=== PATIENT | male | born 2000 | race Caucasian/White ===

== ENCOUNTER 2022-10-05 15:09 | Emergency (ER) | payer OTHER ==
[~2022-10-05] VITALS: Ht 190 cm; Wt 142.0 kg
--- NOTE | 2022-10-05 15:38 | ED Chest Pain ---
General Chief Complaint: Chest Wall Stated Complaint: CHEST PAIN Nursing Triage Note: PT AMB TO RM 2 PT CO OF PAIN IN L CHEST WALL, DOWN LSIDE 6/10 PAIN. PT STATES DOES HAVE TONSILITIS AND IS CURRENTLY TAKING ANTIBIOTICS AND HAS HAS PREDNISONE. PT STATES HAS BEEN THROWING UP SINCE YESTERDAY. Source: patient Exam Limitations: no limitations (KEITH ARIAS) History of Present Illness Date Seen by Provider: Oct 05, 2022 Time Seen by Provider: 15:35 Initial Comments Patient is a 22-year-old male who presents the ED with left-sided chest pain. S tarted her 6 hours ago while sitting at home. Describes pain as somebody sitting on his chest. Worse with movement radiates from the left sided chest to the left lateral chest. Pain is 6 out of 10. But is exacerbated with movement. Had associated shortness of breath that improved. Denies cough. patient was diagnosed with tonsillitis yesterday at [facility] prescribed prednisone. Started prednisone yesterday not currently antibiotics. Reports negative strep and COVID. States he has been having some intermittent vomiting and diarrhea over the past 2 days. No history of cardiac disease, CHF, asthma, smoking. No recent travels or surgeries or no blood disorders. Denies leg pain or swelling. No history of previous symptoms in the past or history of syncope. Denies fever, chills, headache, dizziness, ear pain, cough. denies of any specific injury or history of similar pain. (KEITH ARIAS) Allergies and Home Medications Allergies Coded Allergies: Penicillins (Verified Allergy, Unknown, 10/05/22) Patient Home Medication List Home Medication List Reviewed: Yes (KEITH ARIAS) Review of Systems Review of Systems Constitutional: No chills, No diaphoresis; malaise, weakness EENTM: No Double Vision, No Eye Pain Respiratory: Denies Cough; Shortness of Air; Denies SOA at Rest Gastrointestinal: Denies Abdominal Pain, Denies Diarrhea, Denies Nausea, Denies Vomiting Genitourinary: Denies Burning, Denies Discharge Musculoskeletal: No back pain, No joint pain, No muscle pain, No muscle stiffness Skin: No change in color, No change in hair/nails (KEITH ARIAS) All Other Systems Reviewed Negative Unless Noted: Yes (KEITH ARIAS) Past Ninzxbm-Vjuyco-Ijyryt Hx Patient Social History Use of E-Cig and/or Vaping dev: Yes E-Cig or Vaping type used: Nicotine Substance use?: No Alcohol Use?: No Pt feels they are or have been: No (KEITH ARIAS) Immunizations Up To Date Influenza Vaccine Up-to-Date: No; Not Current First/Initial COVID19 Vaccinat: YES (KEITH ARIAS) Past Medical History Surgery/Hospitalization HX: DENIES MED HX (KEITH ARIAS) Physical Exam Vital Signs Vital Signs - First Documented 10/05/22 15:15 Temp 36.3 Pulse 116 Resp 21 B/P (MAP) 129/70 (89) (ABRAHAM HERNANDEZ MD) Vital Signs Capillary Refill : Less Than 3 Seconds (KEITH ARIAS) Height, Weight, BMI Height: '" Weight: lbs. oz. kg; 39.00 BMI Method: General Appearance: No Apparent Distress, WD/WN HEENT: PERRL/EOMI, TMs Normal, Normal ENT Inspection, Pharynx Normal Neck: Full Range of Motion, Normal Inspection, Non Tender, Supple Respiratory: Lungs Clear, Normal Breath Sounds, No Accessory Muscle Use, No Respiratory Distress, Other (Left-sided chest wall tenderness and anterior chest wall tenderness) Cardiovascular: Regular Rate, Rhythm, No Edema, No Gallop, No JVD Gastrointestinal: Normal Bowel Sounds, No Organomegaly, No Pulsatile Mass, Non Tender Extremity: Normal Capillary Refill, Normal Inspection, Normal Range of Motion, Non Tender Neurologic/Psychiatric: Alert, Oriented x3, No Motor/Sensory Deficits, Normal Mood/Affect, green chain marker II-XII Norm as Tested Skin: Normal Color, Warm/Dry (KEITH ARIAS) Progress/Results/Core Measures Results/Orders Lab Results Laboratory Tests Test 10/05/22 15:20 Range/Units White Blood Count 14.5 H 4.3-11.0 10^3/uL Red Blood Count 6.02 H 4.30-5.52 10^6/uL Hemoglobin 17.9 H 13.3-17.7 g/dL Hematocrit 51 40-54 % Mean Corpuscular Volume 84 80-99 fL Mean Corpuscular Hemoglobin 30 25-34 pg Mean Corpuscular Hemoglobin Concent 35 32-36 g/dL Red Cell Distribution Width 13.1 10.0-14.5 % Platelet Count 265 130-400 10^3/uL Mean Platelet Volume 9.5 9.0-12.2 fL Immature Granulocyte % (Auto) 0 % Neutrophils (%) (Auto) 82 H 42-75 % Lymphocytes (%) (Auto) 10 L 12-44 % Monocytes (%) (Auto) 7 0-12 % Eosinophils (%) (Auto) 1 0-10 % Basophils (%) (Auto) 0 0-10 % Neutrophils # (Auto) 11.9 H 1.8-7.8 10^3/uL Lymphocytes # (Auto) 1.4 1.0-4.0 10^3/uL Monocytes # (Auto) 1.1 H 0.0-1.0 10^3/uL Eosinophils # (Auto) 0.1 0.0-0.3 10^3/uL Basophils # (Auto) 0.0 0.0-0.1 10^3/uL Immature Granulocyte # (Auto) 0.1 0.0-0.1 10^3/uL Neutrophils % (Manual) 81 % Lymphocytes % (Manual) 5 % Monocytes % (Manual) 7 % Band Neutrophils 7 % Platelet Estimate NORMAL Blood Morphology Comment NORMAL Prothrombin Time 14.0 12.2-14.7 SEC INR Comment 1.0 0.8-1.4 Activated Partial Thromboplast Time 38 H 24-35 SEC D-Dimer 0.55 H 0.00-0.49 UG/ML Sodium Level 143 135-145 MMOL/L Potassium Level 3.9 3.6-5.0 MMOL/L Chloride Level 106 98-107 MMOL/L Carbon Dioxide Level 24 21-32 MMOL/L Anion Gap 13 5-14 MMOL/L Blood Urea Nitrogen 17 7-18 MG/DL Creatinine 0.93 0.60-1.30 MG/DL Estimat Glomerular Filtration Rate 121 BUN/Creatinine Ratio 18 Glucose Level 102 70-105 MG/DL Calcium Level 9.3 8.5-10.1 MG/DL Corrected Calcium 8.9 8.5-10.1 MG/DL Magnesium Level 1.7 1.6-2.4 MG/DL Total Bilirubin 1.0 0.1-1.0 MG/DL Aspartate Amino Transf (AST/SGOT) 16 5-34 U/L Alanine Aminotransferase (ALT/SGPT) 35 0-55 U/L Alkaline Phosphatase 69 40-136 U/L Myoglobin 59.5 10.0-92.0 NG/ML Troponin I < 0.028 <0.028 NG/ML Total Protein 8.0 6.4-8.2 GM/DL Albumin 4.5 3.2-4.5 GM/DL Lipase 10 8-78 U/L Monoscreen NEGATIVE NEGATIVE (ABRAHAM HERNANDEZ MD) Vital Signs/I&O 10/05/22 10/05/22 15:15 17:37 Temp 36.3 36.3 Pulse 116 91 Resp 21 20 B/P (MAP) 129/70 (89) 120/91 (ABRAHAM HERNANDEZ MD) Blood Pressure Mean: 89 Initial ECG Impression Date: Oct 05, 2022 Initial ECG Impression Time: 15:22 Comment Sinus rhythm, 96 bpm, QRS duration 81 MS, QTc 415 MS. (KEITH ARIAS) Departure Communication (PCP) Patient presents ED with left-sided chest pain. Started 6 hours while lying down at home. No recent travels or surgeries. However patient was tachycardic. Reports sore throat was placed on prednisone yesterday concern for tonsillitis. He reports negative strep. EKG showed normal sinus rhythm. PECARN is considered low risk however due to the tachycardia and left-sided chest pressure and pain D-dimer was ordered and positive. CT angio of the chest was unremarkable. Normal troponin. White blood count 14. Jeff [place] was negative. No evidence of pneumonia. He states his throat has improved. No obvious purulent drainage at this time. No stridor. No difficulty swallowing. No evidence of Jose angina. Tolerating secretions. Does have tenderness to palpate to the chest. Patient Was given Toradol with improvement of pain. This appears to be more musculoskeletal versus pleurisy. No family history of sudden cardiac . Denies history of syncope with exertion. No obvious murmurs. Recommend outpatient follow-up for further evaluation. Anti-inflammatories for pain. He states the prednisone has been making him feel dizzy and jittery and I suggest stopping it. Discussed following up with lab work with primary care physician in 3 to 4 days. Return precautions were discussed such as worsening throat pain, chest pain, throat pain. Low heart score. (KEITH ARIAS) Impression Primary Impression: Chest pain Disposition: 01 HOME, SELF-CARE Condition: Stable Departure-Patient Inst. Decision time for Depature: 17:29 (KEITH ARIAS) Referrals: [facility],LOCAL PHYSICIAN (PCP) Primary Care Physician Patient Instructions: Chest Pain, Adult ED Add. Discharge Instructions: Return back to ED if symptoms worsen. Anti-inflammatories for pain All discharge instructions reviewed with patient and/or family. Voiced understanding. ATTENDING PHYSICIAN NOTE: I was physically present as attending physician in the emergency department during the care of this patient, but I was not directly involved in the decision making or delivery of care for this patient. (ABRAHAM HERNANDEZ MD) KEITH ARIAS Oct 05, 2022 15:38 ABRAHAM HERNANDEZ MD Oct 07, 2022 06:29
[2022-10-05 15:39] LABS: BASOPHILS % (AUTO) 0 % (0-10); EOSINOPHILS # (AUTO) 0.1 10^3/uL (0.0-0.3); EOSINOPHILS % (AUTO) 1 % (0-10); HEMATOCRIT 51 % (40-54); HEMOGLOBIN 17.9 g/dL (13.3-17.7); LYMPHOCYTES # (AUTO) 1.4 10^3/uL (1.0-4.0); LYMPHOCYTES % (AUTO) 10 % (12-44); MEAN CORPUSCULAR HEMOGLOBIN 30 pg (25-34); MEAN CORPUSCULAR HGB CONC 35 g/dL (32-36); MEAN CORPUSCULAR VOLUME 84 fL (80-99); MEAN PLATELET VOLUME 9.5 fL (9.0-12.2); MONOCYTES # (AUTO) 1.1 10^3/uL (0.0-1.0); MONOCYTES % (AUTO) 7 % (0-12); NEUTROPHILS # (AUTO) 11.9 10^3/uL (1.8-7.8); NEUTROPHILS % (AUTO) 82 % (42-75); PLATELET COUNT 265 10^3/uL (130-400); WHITE BLOOD COUNT 14.5 10^3/uL (4.3-11.0)
[2022-10-05 15:44] LABS: ALBUMIN 4.5 GM/DL (3.2-4.5); POTASSIUM 3.9 MMOL/L (3.6-5.0)
[2022-10-05 15:45] LABS: CALCIUM 9.3 MG/DL (8.5-10.1)
[2022-10-05] MEDS ORDERED: KETOROLAC 30 MG/ML VIAL IVP ONE (15:45)
[2022-10-05 15:50] LABS: CREATININE SERUM 0.93 MG/DL (0.60-1.30)
[2022-10-05 15:53] LABS: MAGNESIUM 1.7 MG/DL (1.6-2.4)
--- NOTE | 2022-10-05 15:55 | Diagnostic Imaging Report ---
INDICATION: Chest pain. COMPARISON: None available. FINDINGS: The lungs appear clear without focal airspace opacities or consolidation. There are no findings of an effusion. There is no evidence of a pneumothorax. Heart size and mediastinal contours appear appropriate. Pulmonary vascularity appears within normal limits. There is no acute or suspicious osseous abnormality demonstrated. IMPRESSION: No radiographic evidence of an acute cardiopulmonary process. Dictated by: Dictated on workstation # [id number]
[2022-10-05] MEDS ORDERED: IOHEXOL 350 MG/ML 100 ML (OMNIPAQUE 350) VIAL IV ONE (16:15)
[2022-10-05] MEDS ORDERED: NS 100 ML (IVPB) BAG IV ONE (16:15)
[2022-10-05] MEDS ORDERED: HOLD METFORMIN - RECEIVED CONTRAST 20 ML VIAL IV SCH (16:15)
[2022-10-05 16:58] LABS: BAND NEUTROPHILS 7 %; NEUTROPHILS % (MANUAL) 81 %
[2022-10-05 16:59] LABS: LYMPHOCYTES % (MANUAL) 5 %; MONOCYTES % (MANUAL) 7 %; PLATELET ESTIMATE NORMAL; RBC MORPH NORMAL
--- NOTE | 2022-10-05 17:07 | Diagnostic Imaging Report ---
EXAMINATION: CT angiography of the chest with contrast. INDICATION: Chest pain and tachycardia with recent travel. COMPARISON: Chest radiograph from the same day. TECHNIQUE: After intravenous administration of contrast, thin section axial CT angiography of the chest was performed. Multiple reconstructions were provided including MIP reformats. All CT scans use one or more of the following dose optimizing techniques: Automated exposure control, MA and/or KvP adjustment based on patient size and exam type or iterative reconstruction. FINDINGS: There are no CT angiographic findings of a filling defect within the pulmonary arteries or evidence to suggest right ventricular strain. There is no aortic dissection or aneurysm. Heart size appears appropriate. There is no filling defect evident in the left atrium or left atrial appendage. There is residual thymus within the anterior mediastinum. There are no findings of mediastinal or hilar adenopathy. The lungs appear clear without findings of pneumonia or edema. There are no interstitial changes. There is no air trapping. There is no nodule or mass. There are no findings of an effusion or pneumothorax. The upper abdomen demonstrates no evidence of an acute process. There is no acute osseous abnormality demonstrated. IMPRESSION: 1. No CT angiographic evidence of pulmonary embolism. No findings to suggest right ventricular strain. 2. No acute aortic syndrome. 3. Lungs appear clear. 4. No pathologic enlargement of thoracic lymph nodes. There is residual thymus in the anterior mediastinum. 5. No acute osseous abnormality. Dictated by: Dictated on workstation # [id number]
[2022-10-05 17:37] VITALS: BP 120/91
== END 2022-10-05 17:38 | disposition home or self-care (01) ==
LOC: ER 15:11
DX: R07.89 Other chest pain (principal); F17.290 Nicotine dependence, other tobacco product, uncomplicated
CPT/HCPCS: 36415; 71045; 71275; 80053; 83690; 83735; 83874; 84484; 85007; 85027; 85379; 85610; 85730; 86308; 93005; 93041